=== PATIENT | male | born 1935 | race Caucasian/White ===

== ENCOUNTER → 2017-01-20 | Outpatient (CLI) | payer OTHER ==
[2015-12-03 12:49] VITALS: BP 113/65
--- NOTE | 2017-01-20 10:48 | RAD ---
HISTORY: Cervicalgia Study: Two-view chest Comparison: May 23, 2014 Findings: Trachea is midline. The heart size is normal. There is hyperinflation of the lungs. Increased inters titial markings are again seen in the lungs, more so in the lung bases. Findings favor COPD. No cons olidation, CHF, pleural fluid or pneumothorax is seen. Mild biapical pleural thickening is also seen . Osseous structures are intact. There is multilevel thoracic spondylosis. IMPRESSION: COPD without acute abnormality. Reported By:
--- NOTE | 2017-01-20 16:11 | RAD ---
HISTORY: Cervicalgia Study: Five view cervical spine Comparison: September 09, 2011 Findings: No fracture is seen. There is a very low-grade retrolisthesis of C4 upon C5, likely degenerative. Di sc space narrowing and marginal spondylosis is present at C4-5, C5-6 and C6-7. Bilateral spurs are s een at these levels also. Odontoid view is unremarkable. IMPRESSION: No fracture. Very low-grade retrolisthesis of C4 upon C5, likely degenerative. Multilevel degenerative disc disease and spondylosis with lateral foraminal encroachment bilaterally . Reported By:
== END ==
LOC: RAD 09:05
PROVIDERS: ATTEND Nurse Practitioner Family
DX: M54.2 Cervicalgia (principal); J44.9 Chronic obstructive pulmonary disease, unspecified; M50.321 Other cervical disc degeneration at C4-C5 level; M50.322 Other cervical disc degeneration at C5-C6 level; M50.323 Other cervical disc degeneration at C6-C7 level
CPT/HCPCS: 71020; 72050

== ENCOUNTER → 2017-02-09 | Outpatient (CLI) | payer OTHER ==
[2015-12-03 12:49] VITALS: BP 113/65
--- NOTE | 2017-02-10 08:29 | MRI ---
HISTORY: Cervicalgia, left radiculopathy Study: MRI cervical spine without contrast Comparison: None Technique: Multiplanar multisequence MRI of the cervical spine was obtained utilizing standard depar tmental protocol. Findings: There is mild retrolisthesis of C4 on C5. Alignment of the cervical spine is otherwise maintained. No abnormal signal characteristics of the bone marrow can be identified. No evidence for fracture o r significant bone or edema can be seen. The surrounding soft tissues are unremarkable. C2 -- C3: No evidence for compressive disc disease. The neural foramina are patent. C3 -- C4: Broad-based disk osteophyte formation causes mild thecal sac effacement but no cord compre ssion. It does contribute to foraminal narrowing bilaterally. C4 -- C5: There is disc degeneration with slight retrolisthesis L4 on L5. Broad-based disc osteophyt e complex and retrolisthesis efface the thecal sac contributing to significant canal stenosis and mo derate cord compression. It also contributes to foraminal narrowing bilaterally. C5 -- C6: Disc degeneration is present. Broad-based disc osteophyte formation extends slightly more to the left than the right. It contributes to effacement of the thecal sac and mild canal stenosis b ut no cord compression. It contributes to foraminal narrowing bilaterally. C6 -- C7: Broad-based disk osteophyte formation effaces the thecal sac and contributes to mild canal stenosis but no cord compression. It contributes to significant foraminal narrowing on the right. T he left neural foramen is patent. C7 -- T1: No evidence for compressive disc disease. The neural foramina are patent. IMPRESSION: As above Reported By:
== END | disposition home or self-care (01) ==
LOC: RAD 12:43
PROVIDERS: ATTEND Internal Medicine
DX: R22.2 Localized swelling, mass and lump, trunk (principal); M50.321 Other cervical disc degeneration at C4-C5 level; M50.322 Other cervical disc degeneration at C5-C6 level
CPT/HCPCS: 72141

== ENCOUNTER 2022-01-14 12:09 | Observation (INO) ==
[2022-01-14 13:26] LABS: ABG BASE EXCESS -0.4 mmol/L (-2.0-2.0); ABG HCO3 22.3 mmol/L (22-26)
[2022-01-14 13:31] LABS: BASOPHILS # (AUTO) 0.1 X10^3/uL (0.0-0.1); BASOPHILS % (AUTO) 0.7 % (0.2-1.0); EOSINOPHILS # (AUTO) 0.1 x10^3/uL (0.0-0.2); EOSINOPHILS % (AUTO) 0.6 % (0.9-2.9); ERYTHROCYTE SEDIMENTATION RATE 76 MM/HOUR (0-15); HEMATOCRIT 33.5 % (42.0-54.0); HEMOGLOBIN 11.5 g/dL (13.5-18.0); LYMPHOCYTES # (AUTO) 0.5 X10^3/uL (1.3-2.9); LYMPHOCYTES % (AUTO) 5.7 % (21.0-51.0); MEAN CORPUSCULAR HEMOGLOBIN 29.9 pg (27.0-34.0); MEAN CORPUSCULAR HGB CONC 34.4 g/dL (33.0-35.0); MEAN PLATELET VOLUME 6.5 fL (7.4-11.0); MONOCYTES # (AUTO) 0.7 x10^3/uL (0.3-0.8); MONOCYTES % (AUTO) 7.4 % (0.0-13.0); NEUTROPHILS # (AUTO) 8.3 x10^3/uL (2.2-4.8); NEUTROPHILS % (AUTO) 85.6 % (42.0-75.0); RED BLOOD COUNT 3.85 X10^6/uL (4.7-6.0); WHITE BLOOD COUNT 9.7 X10^3/uL (3.6-10.0)
[2022-01-14 13:41] LABS: LACTIC ACID 1.4 mmol/L (0.4-2.0)
[2022-01-14 13:49] LABS: ALANINE AMINOTRANSFERASE 96 Units/L (12-78); ALBUMIN 2.1 g/dL (3.4-5.0); ALKALINE PHOSPHATASE 174 Units/L (46-116); ASPARTATE AMINO TRANSFERASE 63 Units/L (15-37); BLOOD UREA NITROGEN 27 mg/dL (7-18); CARBON DIOXIDE 24.5 mmol/L (21-32); CHLORIDE 101 mmol/L (98-107); CKMB % 2.1 % (<4); COR CA(FOR HYPOALB) 10.5 mg/dL (8.5-10.1); COR NA(FOR HYPERGLY) 137 mmol/L (136-145); CREATINE KINASE 48 Units/L (39-308); CREATINE KINASE MB < 1.0 ng/mL (0-4.0); CREATININE 1.37 mg/dL (0.70-1.30); SODIUM 136 mmol/L (136-145); TOTAL PROTEIN 7.1 g/dL (6.4-8.2); eGFR NON BLACK RACES 52 (>60)
[2022-01-14] MEDS ORDERED: DUONEB 0.5 MG/3 MG (3 mL) NEB SCH (14:00)
[2022-01-14] MEDS: XOPENEX 1.25 MG/3 ML NEBULE NEB SCH ×2 (14:10→20:49)
[2022-01-14 14:34] LABS: IRON 30 ug/dL (50-175)
[2022-01-14] MEDS: ROCEPHIN VIAL 1 GRAM 1 G in NS 100 ML IV 100 ML IV SCH (15:34)
[2022-01-14] MEDS: NS 1,000 ML IV 1,000 ML IV SCH (15:34)
--- NOTE | 2022-01-14 17:33 | DR.H&P ---
H&P - History & Physical for Day of: H&P Date: 01/14/22 - Chief Complaint Chief Complaint: SOB, WEAKNESS - History of Present Illness History of Present Illness: PT IS 86 WM DIRECT ADMIT FROM DR MELENDEZ OFFICE WITH RESPIRATORY DISTRESS. PT HAD O2 SAT 76% IN TRIAGE. PT SPOUSE REPORTS HE HAS CO INTRACTABLE CHOU FOR SEVERAL DAYS AND WORSENING SOB, POOR APPETITE AND UNSTEADY GAIT. PT HAS PMH OF CAD, MG, COPD, OA AND GERD. PT WAS RECENTLY SEEN BY HIS FUR VAULT ATTENDANT AND REFERRED TO [facility] FOR EVALUATION. PT REPORTS HE HAS NOT FELT GOOD IN SINCE COVID IN OCT 2021. PT TESTED POSITIVE ON 11/06/21. PT ADMITTED FOR TREATMENT OF ACUTE ILLNESS. - Past Medical History Past Medical History: Anxiety, Arthritis, COPD, Coronary Artery Disease Additional Medical History: myasthenia gravis - Past Surgical History Surgical History: Ortho Surgery, Tonsillectomy, Other - Family History Family Medical History: Hypertension - Social History Does patient currently use any type of tobacco product: No Have you used tobacco products in the last 12 months: No Type of Tobacco Use: None Does any household member use tobacco: No Alcohol Use: None Drug Use: None - Medications Home Medications: codeine Allergy (Verified 01/14/22 16:19) - Review of Systems Constitutional: Weakness, Malaise Eyes: No Symptoms Reported ENT: No Symptoms Reported Respiratory: Shortness of Breath, SOB with Excertion Cardiovascular: Palpitations, Light Headedness Gastrointestinal: Nausea, Constipation Genitourinary: No Symptoms Reported Musculoskeletal: Back Pain, Neck Pain Skin: Ecchymosis Neurological: Weakness - Physical Exam Vital Signs: Temperature 97.8 F Pulse Rate 61 Respiratory Rate 23 Blood Pressure 132/63 O2 Sat by Pulse Oximetry 99 Oriented: Normal Eyes: Normal Ear: Normal Nose: Normal Throat: Normal Respiratory: Diminished Throughout Cardiovascular: Tachycardia, Murmur. negative: Edema : Normal Auscultation: Bowel Sounds: Normal Palpation: Normal Tenderness: Normal Skin: Decreased Turgur Musculoskeletal: Back:Lumbar, Motor Deficit Psychiatric: Anxiety Affect: Anxious Speech Pattern: Clear, Appropriate - Assessment/Plan (1) Hypoxia Status: Acute Plan: ADMIT, ICU STEP DOWN. SERIAL EKG AND CE ON ADMISSION. SUPPLEMENTAL O2, ABG ON ROOM AIR. DUO NEBS, IV ATBX, VERIFY HOME MEDICATION. CTA RO PE. LOVENOX THERAPY (2) Elevated d-dimer Status: Acute (3) SOB (shortness of breath) Status: Acute (4) Weakness Status: Acute (5) Myasthenia gravis Status: Acute (6) COPD (chronic obstructive pulmonary disease) Status: Acute - Allergies Allergies/Adverse Reactions: Allergies Allergy/AdvReac Type Severity Reaction Status Date / Time codeine Allergy Verified 01/14/22 16:19
--- NOTE | 2022-01-14 19:24 | CT ---
EXAM: HEAD CT WITHOUT INTRAVENOUS CONTRASTHISTORY: Intractable headache.TECHNIQUE: Spiral axial CT images are obtained through the brain without the administration of intravenous contrast. Additional sagittal and coronal reformatted images are reconstructed.DOSIMETRY: Total DLP 1188.9 mGycm; CTDI 67.4 mGyCOMPARISON: None available.FINDINGS:There are parenchymal lucencies within the white matter tracks of the centrum semiovale, consistent with chronic sequela of atherosclerotic microvascular ischemic disease. Bilateral basal ganglia calcifications consistent with atherosclerotic microangiopathy. Atherosclerosis of the carotid siphons is seen. Consider follow-up MRA as clinically warranted.There is diffuse cerebral cortical atrophy. The centrum semiovale, basal ganglia, cerebellum, and brainstem are otherwise grossly unremarkable for a noncontrast CT scan. There is no acute intracranial hemorrhage, gross acute infarction, mass lesion, midline shift, or hydrocephalus seen. No extra-axial mass or abnormal fluid collection noted.The calvarium is intact. The partially imaged paranasal sinuses, middle ear cavities and mastoid air cells are clear.IMPRESSION:1. Chronic microvascular ischemic disease, but no discernible acute infarction seen. Consider followup MRI with diffusion-weighted imaging to rule out occult acute infarction if clinically warranted.2. Atherosclerosis of the carotid siphons is seen. Consider follow-up MRA as clinically warranted.3. No skull fracture, intracranial hemorrhage, mass lesion, midline shift, or hydrocephalus seen.Electronically signed by: Tonya Cain (Jan 14, 2022 19:24:37)
[2022-01-14 19:29] LABS: CKMB % 2.3 % (<4); CREATINE KINASE 43 Units/L (39-308); CREATINE KINASE MB < 1.0 ng/mL (0-4.0)
--- NOTE | 2022-01-14 19:57 | CT ---
EXAM: CTA CHEST WITH INTRAVENOUS CONTRASTHISTORY: Shortness of breath. Elevated D-dimer. Rule out PE. Prostate cancer.TECHNIQUE: Spiral axial CT images are obtained through the chest with the administration of intravenous contrast. Coronal, sagittal and 3D MIP images are reformatted.DOSIMETRY: Total DLP 478.5 mGycm; CTDI 32.7 mGyCOMPARISON: None available.FINDINGS:CARDIOVASCULAR: There is no evidence for pulmonary embolic disease. There is aortic atherosclerosis; no aortic dissection seen. There is up to 4.2 cm fusiform aneurysmal dilatation of the ascending thoracic aorta. The heart size is within normal limits. No pericardial effusion is seen.MEDIASTINUM AND TANISHA: There is extensive chronic bilateral parenchymal fibrosis, predominantly in the peripheral lung palafox. Mild calcified and noncalcified pleural plaques are seen in the apical regions bilaterally. There is nonspecific shotty mediastinal lymphadenopathy. No mass lesion, emphysema, or abnormal fluid collection is seen.LUNGS: There is no acute parenchymal infiltrate, lung nodule, or endobronchial obstructing lesion seen. No pleural effusion or pneumothorax is evident.CHEST WALL: There are no chest wall lesions seen. The visualized bony structures are within normal limits. No axillary lymphadenopathy is noted.UPPER ABDOMEN: Limited views through the upper abdomen demonstrate no gross acute abnormality.IMPRESSION:1. No evidence for pulmonary embolic disease.2. Aortic atherosclerosis with approximately 4.2 cm ascending thoracic aortic aneurysm; no dissection or rupture.3. Extensive severe chronic subpleural interstitial fibrosis throughout both lungs.4. No acute parenchymal infiltrate, pleural effusion, or pneumothorax seen.Electronically signed by: Tonya Cain (Jan 14, 2022 19:57:31)
[2022-01-14] MEDS: LIPITOR TAB 40 MG PO SCH (21:30)
[2022-01-14] MEDS: MESTINON 60MG TAB PO SCH (21:30)
[2022-01-14] MEDS: EFFEXOR XR 150 MG CAP 24-HR PO SCH (21:30)
[2022-01-14] MEDS: LUMIGAN OPHTH EACHEYE SCH (21:40)
[2022-01-14 22:01] LABS: BILIRUBIN,URINE NEGATIVE (NEGATIVE); BLOOD/HEMOGLOBIN,URINE 1+ (NEGATIVE); GLUCOSE, URINE NEGATIVE (NEGATIVE); KETONES,URINE NEGATIVE (NEGATIVE); LEUKOCYTE ESTERASE ,URINE NEGATIVE (NEGATIVE); NITRITES,URINE NEGATIVE (NEGATIVE); PROTEIN,URINE 1+ (NEGATIVE); UROBILINOGEN,URINE 1+ (NORMAL)
[2022-01-14 22:09] LABS: APPEARANCE,URINE CLEAR (CLEAR); COLOR,URINE YELLOW (YELLOW)
[2022-01-14 22:10] LABS: BACTERIA,URINE NEGATIVE /HPF (NEGATIVE); RBC,URINE 0-2 /HPF (0-3); SQUAMOUS EPITHELIAL CELL,UR RARE /HPF (NEGATIVE)
[2022-01-15 01:17] LABS: CKMB % 2.8 % (<4); CREATINE KINASE 36 Units/L (39-308); CREATINE KINASE MB < 1.0 ng/mL (0-4.0)
[2022-01-15 03:52] LABS: BASOPHILS % (AUTO) 0.3 % (0.2-1.0); EOSINOPHILS # (AUTO) 0.1 x10^3/uL (0.0-0.2); EOSINOPHILS % (AUTO) 0.8 % (0.9-2.9); HEMATOCRIT 30.6 % (42.0-54.0); HEMOGLOBIN 10.4 g/dL (13.5-18.0); LYMPHOCYTES # (AUTO) 0.5 X10^3/uL (1.3-2.9); LYMPHOCYTES % (AUTO) 5.8 % (21.0-51.0); MEAN CORPUSCULAR HEMOGLOBIN 29.7 pg (27.0-34.0); MEAN CORPUSCULAR HGB CONC 34.2 g/dL (33.0-35.0); MEAN PLATELET VOLUME 6.6 fL (7.4-11.0); MONOCYTES # (AUTO) 0.7 x10^3/uL (0.3-0.8); MONOCYTES % (AUTO) 8.3 % (0.0-13.0); NEUTROPHILS # (AUTO) 6.9 x10^3/uL (2.2-4.8); NEUTROPHILS % (AUTO) 84.8 % (42.0-75.0); RED BLOOD COUNT 3.51 X10^6/uL (4.7-6.0); RED CELL DISTRIBUTION WIDTH 14.9 % (11.6-16.5); WHITE BLOOD COUNT 8.1 X10^3/uL (3.6-10.0)
[2022-01-15 03:59] LABS: ALANINE AMINOTRANSFERASE 103 Units/L (12-78); ALBUMIN 1.8 g/dL (3.4-5.0); ALKALINE PHOSPHATASE 170 Units/L (46-116); ASPARTATE AMINO TRANSFERASE 69 Units/L (15-37); BLOOD UREA NITROGEN 22 mg/dL (7-18); CALCIUM 8.8 mg/dL (8.5-10.1); CARBON DIOXIDE 24.5 mmol/L (21-32); CHLORIDE 103 mmol/L (98-107); COR CA(FOR HYPOALB) 10.6 mg/dL (8.5-10.1); COR NA(FOR HYPERGLY) 138 mmol/L (136-145); CREATININE 1.13 mg/dL (0.70-1.30); SODIUM 137 mmol/L (136-145); TOTAL PROTEIN 6.3 g/dL (6.4-8.2); eGFR NON BLACK RACES > 60 (>60)
[2022-01-15] MEDS: XOPENEX 1.25 MG/3 ML NEBULE NEB SCH ×3 (05:57→21:00)
[2022-01-15] MEDS: MESTINON 60MG TAB PO SCH ×3 (06:19→21:00)
[2022-01-15] MEDS: EFFEXOR XR 150 MG CAP 24-HR PO SCH ×2 (09:20→20:21)
[2022-01-15] MEDS: LOVENOX INJ 40 MG SYR SC SCH (09:20)
[2022-01-15] MEDS: PriLOSEC PO SCH (09:21)
[2022-01-15] MEDS: ROCEPHIN VIAL 1 GRAM 1 G in NS 100 ML IV 100 ML IV SCH (09:21)
[2022-01-15 12:15] VITALS: BMI 21.4
[2022-01-15] MEDS ORDERED: APRESOLINE INJ 20 MG VIAL IVP PRN (13:37)
[2022-01-15] MEDS: SOLU-Medrol 40 MG VIAL IVP SCH ×2 (13:53→21:00)
[2022-01-15] MEDS: PROTONIX INJ 40 MG VIAL IVP SCH ×2 (13:53→20:21)
--- NOTE | 2022-01-15 14:26 | VAS ---
HISTORYElevated D-dimer.STUDYLOWER EXT VENOUS, BILATERALCOMPARISONNoneTECHNIQUEThirty-s ix images made by the anesthesia tech. Matias scale and color flow Doppler images of the right and left lower extremity deep venous system were obtained.FINDINGSThere was normal compressibility and flow characteristics from the common femoral vein to the popliteal vein. No evidence of deep venous thrombosis.Proximal profunda femoral vein was patent with no thrombus.Proximal greater saphenous vein was patent with no superficial thrombophlebitis.Posterior tibial veins were patent with no thrombosis.IMPRESSION1. No lower extremity venous thrombosisElectronically signed by: Carlos Vega (Jan 15, 2022 14:26:03)
--- NOTE | 2022-01-15 14:28 | VAS ---
HISTORYElevated D-dimer. Evaluate venous thrombosis.STUDYUPPER EXT VENOUS, BILATCOMPARISONNoneTECHNIQUETwenty-three images made by the cryptological technician. Matias scale and color flow Doppler images of the right and left upper extremity deep venous system were obtained.FINDINGSNormal color flow fills the entire lumen the left and right jugular veins and subclavian veins.There was normal compressibility and flow characteristics from the axillary vein to the brachial vein at the elbow. No evidence of deep venous thrombosis.In the forearm there is normal compressibility and flow characteristics from the brachial vein into the radial veins and ulnar veins.IMPRESSION1. No upper extremity venous thrombosisElectronically signed by: Carlos Vega (Jan 15, 2022 14:28:27)
[2022-01-15] MEDS: NS 1,000 ML IV 1,000 ML IV SCH (17:21)
[2022-01-15] MEDS: LUMIGAN OPHTH EACHEYE SCH (20:20)
[2022-01-15] MEDS: LIPITOR TAB 40 MG PO SCH (20:21)
[2022-01-16 05:12] LABS: BASOPHILS % (AUTO) 0.4 % (0.2-1.0); HEMATOCRIT 29.7 % (42.0-54.0); HEMOGLOBIN 10.4 g/dL (13.5-18.0); LYMPHOCYTES # (AUTO) 0.2 X10^3/uL (1.3-2.9); LYMPHOCYTES % (AUTO) 3.6 % (21.0-51.0); MEAN CORPUSCULAR HEMOGLOBIN 30.4 pg (27.0-34.0); MEAN CORPUSCULAR VOLUME 86.9 fL (80.0-100.0); MEAN PLATELET VOLUME 6.4 fL (7.4-11.0); MONOCYTES # (AUTO) 0.1 x10^3/uL (0.3-0.8); MONOCYTES % (AUTO) 1.4 % (0.0-13.0); NEUTROPHILS # (AUTO) 6.4 x10^3/uL (2.2-4.8); NEUTROPHILS % (AUTO) 94.6 % (42.0-75.0); RED BLOOD COUNT 3.42 X10^6/uL (4.7-6.0); RED CELL DISTRIBUTION WIDTH 14.9 % (11.6-16.5); WHITE BLOOD COUNT 6.7 X10^3/uL (3.6-10.0)
[2022-01-16 05:26] LABS: ALANINE AMINOTRANSFERASE 160 Units/L (12-78); ALBUMIN 1.8 g/dL (3.4-5.0); ALKALINE PHOSPHATASE 184 Units/L (46-116); ASPARTATE AMINO TRANSFERASE 105 Units/L (15-37); BLOOD UREA NITROGEN 22 mg/dL (7-18); CALCIUM 8.6 mg/dL (8.5-10.1); CARBON DIOXIDE 24.2 mmol/L (21-32); CHLORIDE 104 mmol/L (98-107); COR CA(FOR HYPOALB) 10.4 mg/dL (8.5-10.1); COR NA(FOR HYPERGLY) 140 mmol/L (136-145); CREATININE 1.23 mg/dL (0.70-1.30); SODIUM 137 mmol/L (136-145); TOTAL PROTEIN 6.2 g/dL (6.4-8.2); eGFR NON BLACK RACES 59 (>60)
[2022-01-16 05:51] LABS: PLATELET MORPHOLOGY COMMENT NORMAL (NORMAL)
[2022-01-16] MEDS: XOPENEX 1.25 MG/3 ML NEBULE NEB SCH ×2 (06:27→13:15)
[2022-01-16] MEDS: MESTINON 60MG TAB PO SCH ×2 (06:29→13:42)
[2022-01-16] MEDS: SOLU-Medrol 40 MG VIAL IVP SCH (06:29)
[2022-01-16] MEDS: LOVENOX INJ 40 MG SYR SC SCH (08:54)
[2022-01-16] MEDS: ROCEPHIN VIAL 1 GRAM 1 G in NS 100 ML IV 100 ML IV SCH (08:54)
[2022-01-16] MEDS: PriLOSEC PO SCH (08:55)
[2022-01-16] MEDS: EFFEXOR XR 150 MG CAP 24-HR PO SCH (08:55)
[2022-01-16] MEDS: PROTONIX INJ 40 MG VIAL IVP SCH (08:55)
--- NOTE | 2022-01-16 08:55 | RAD ---
HISTORYConstipationSTUDYAbdomen series with AP chestCOMPARISONCT abdomen 08/08/2019, CTA chest January 14, 2022FINDINGSAP chest: Heart size normal. Bilateral interstitial and airspace disease consistent with fibrosis described on recent chest CT. No pleural fluid or pneumoperitoneum.Abdomen: Supine and erect views demonstrate slight dilatation of scattered segments of bowel. There is no evidence for obstruction or perforation. No organ enlargement, ascites or mass formation noted. Contrast material is noted in the urinary bladder. Radiation seed sources are noted in the prostate.IMPRESSIONNo acute chest disease noted. See above description.Nonspecific abdomen series without evidence for obstruction, focal ileus or perforation.Electronically signed by: SHEILA ACE (Jan 16, 2022 08:55:29)
[2022-01-16 13:36] VITALS: BP 142/70
--- NOTE | 2022-03-11 12:10 | PCM.DCPLAN ---
Discharge Plan - Discharge Plan Hospital Course: Admit date 01/14/22 Discharge date 01/16/22 DOS 01/16/22 Admit Diagnosis(1) Hypoxia (2) Elevated d-dimer (3) SOB (shortness of breath) (4) Weakness (5) Myasthenia gravis (6) COPD (chronic obstructive pulmonary disease) Discharge Diagnosis 1. Acute bronchitis with pulmonary fibrosis. 2. Abnormal D-Dimer. 3. Myasthenia gravis. 4. Lower abdominal pain with history of constipation. 5. History of multijoint osteoarthritis. Hospital Course Mr. Pearce is an 86-year-old white male admitted from our office yesterday with respiratory distress. The patient does have a history of chronic obstructive pulmonary disease. He had COVID-19 at the end of October and reports since COVID-19 he has gradually gotten weaker. He has had multiple falls with worsening shortness of breath. The patients PO2 on room air on admission was 63. He had an elevated D-Dimer and we ordered a CTA of his chest, which showed bilateral diffuse pulmonary fibrosis without pulmonary embolism. The patient was slightly dehydrated with a creatinine of 1.37. He has received IV fluids at KVO and his creatinine was down to 1.3 today. Serial cardiac enzymes were stable. He did have an occult stool ordered, as well as an anemia panel and lactic acid. The patients iron was at 30, so we will order some iron replacement therapy. Lactic acid was normal at 1.4. The patients LDH was obtained and it was elevated. The patients CRP was at 461. He had been complaining of a headache, so we also obtained a CT of the brain just showing some chronic microvascular changes. No signs of any acute hemorrhage or CVA. After being placed on supplemental oxygen, the patient reported headache improved. He was having persistent cough. The patient stated that he had minimal production this morning. He is tolerating breathing treatments okay. We did order upper and lower extremity venous Dopplers also because of his elevated D-dimer and those were negative for peripheral deep vein thrombosis. He is on Lovenox anticoagulant therapy for deep vein thrombosis prevention. We also started him on a low-dose of corticosteroids to help with his upper respiratory symptoms. He denies chest pain this morning. The patient states that he did rest pretty well the first part of the night and we resumed his home medication for myasthenia gravis, as well as depression. Patient was treated with duo nebs, steroids, and antibiotics, and oxygen. Patient symptoms improved and patient was discharged home with follow up in office. Imaging revealed no acute findings. LAbs were unremarkable. Symptoms improved, cultures negative. Greater than 35 mins spent on discharge. Disposition: 01 HOME, SELF-CARE Condition: Stable Health Concerns: Post Hospitalization: new medications and changes needed to prevent readmission or further decline. Pt educated and given instructions on all concerns. Care Plan Goals: Problem: Respiratory Complications Goal: Improved Uncomplicated Respiratory Status Instructions: Follow provided instructions. Follow up with primary physician as directed. Contact primary care physician or report to the closest Emergency Room if condition worsens. Plan of Treatment: Continue with present treatment and follow up plan. Pt is to keep follow up appointment as instructed and take medications as ordered. Prescriptions: Continued acebutolol 200 mg capsule 200 mg PO DAILY atorvastatin 40 MG tablet 1 tab PO HS Lumigan 0.01 % drops 1 drp PO HS omeprazole 20 MG capsule,delayed release(DR/EC) 20 mg PO BID pyridostigmine bromide 60 mg tablet 120 mg PO TID Simbrinza 1-0.2 % drops,suspension 3 drp ophthalmic (eye) TID tolterodine 4 mg capsule,extended release 24hr 4 mg PO DAILY venlafaxine 150 MG capsule,extended release 24hr 1 cap PO DAILY - Orders to Discharge Patient Discharge Orders: Discharge (Routine); Ordered 01/16/22 Ordered By: Kaylee Lee - Instructions Instructions: Fall Prevention in the Home, Adult, [id number], Home Oxygen Use, Adult, Hypoxia, Chronic Obstructive Pulmonary Disease Exacerbation, [id number], Rehydration, Elderly, Dehydration, Elderly, [id number], Myasthenia Gravis Forms: Precautions for [place] [id number], [facility], Patient Portal, Social Distancing Print Language: YI
== END 2022-01-16 16:11 | disposition home or self-care (01) ==
LOC: ICU
PROVIDERS: ADMIT Internal Medicine; ATTEND Internal Medicine
DX: J20.8 Acute bronchitis due to other specified organisms; I71.2 Thoracic aortic aneurysm, without rupture; K59.09 Other constipation; G70.00 Myasthenia gravis without (acute) exacerbation; R06.02 Shortness of breath; J84.10 Pulmonary fibrosis, unspecified; E86.0 Dehydration; R51.9 Headache, unspecified; R06.03 Acute respiratory distress; J44.9 Chronic obstructive pulmonary disease, unspecified; Z86.16 Personal history of COVID-19; R53.1 Weakness; R79.82 Elevated C-reactive protein (CRP); R79.1 Abnormal coagulation profile; R94.31 Abnormal electrocardiogram [ECG] [EKG]; R26.81 Unsteadiness on feet

== ENCOUNTER 2023-08-06 15:10 | Observation (INO) ==
[2023-08-06] MEDS ORDERED: ZOFRAN INJ 4 MG VIAL IVP PRN (17:42)
[2023-08-06 17:52] LABS: ABG BASE EXCESS 2.4 mmol/L (-2.0-2.0); ABG HCO3 27.2 mmol/L (22-26)
[2023-08-06 18:03] LABS: HEMATOCRIT 38.8 % (42.0-54.0)
[2023-08-06 18:08] LABS: BASOPHILS % (AUTO) 0.4 % (0.2-1.0); EOSINOPHILS # (AUTO) 0.1 x10^3/uL (0.0-0.2); EOSINOPHILS % (AUTO) 1.1 % (0.9-2.9); LYMPHOCYTES % (AUTO) 12.9 % (21.0-51.0); MEAN CORPUSCULAR HEMOGLOBIN 29.3 pg (27.0-34.0); MEAN CORPUSCULAR HGB CONC 33.5 g/dL (33.0-35.0); MEAN CORPUSCULAR VOLUME 87.5 fL (80.0-100.0); MEAN PLATELET VOLUME 6.5 fL (7.4-11.0); MONOCYTES # (AUTO) 0.7 x10^3/uL (0.3-0.8); MONOCYTES % (AUTO) 8.3 % (0.0-13.0); NEUTROPHILS # (AUTO) 6.1 x10^3/uL (2.2-4.8); NEUTROPHILS % (AUTO) 77.3 % (42.0-75.0); PLATELET COUNT 181 X10^3/uL (150.0-450.0); RED BLOOD COUNT 4.43 X10^6/uL (4.7-6.0); RED CELL DISTRIBUTION WIDTH 14.4 % (11.6-16.5); WHITE BLOOD COUNT 7.9 X10^3/uL (3.6-10.0)
[2023-08-06 18:11] LABS: INR 1.05 (0.8-1.3)
[2023-08-06 18:20] LABS: ALANINE AMINOTRANSFERASE 26 Units/L (12-78); ALBUMIN 3.1 g/dL (3.4-5.0); ALKALINE PHOSPHATASE 128 Units/L (46-116); ASPARTATE AMINO TRANSFERASE 19 Units/L (15-37); BLOOD UREA NITROGEN 29 mg/dL (7-18); CALCIUM 8.9 mg/dL (8.5-10.1); CARBON DIOXIDE 31.3 mmol/L (21-32); CHLORIDE 104 mmol/L (98-107); COR CA(FOR HYPOALB) 9.6 mg/dL (8.5-10.1); CREATININE 1.32 mg/dL (0.70-1.30); GLUCOSE 100 mg/dL (65-99); POTASSIUM 4.4 mmol/L (3.5-5.1); SODIUM 141 mmol/L (136-145); TOTAL PROTEIN 6.6 g/dL (6.4-8.2); eGFR NON BLACK RACES 54 (>60)
[2023-08-06 18:33] VITALS: BMI 20.8
[2023-08-06] MEDS: ROCEPHIN VIAL 1 GRAM 1 G in NS 100 ML IV 100 ML IV SCH (19:30)
[2023-08-06] MEDS: NS 1,000 ML IV 1,000 ML IV SCH (19:30)
[2023-08-06 20:31] LABS: BILIRUBIN,URINE NEGATIVE (NEGATIVE); BLOOD/HEMOGLOBIN,URINE NEGATIVE (NEGATIVE); GLUCOSE, URINE NEGATIVE (NEGATIVE); KETONES,URINE NEGATIVE (NEGATIVE); LEUKOCYTE ESTERASE ,URINE NEGATIVE (NEGATIVE); NITRITES,URINE NEGATIVE (NEGATIVE); PROTEIN,URINE NEGATIVE (NEGATIVE); UROBILINOGEN,URINE NORMAL (NORMAL)
[2023-08-06] MEDS: PROTONIX INJ 40 MG VIAL IVP SCH (20:33)
[2023-08-06] MEDS: TYLENOL 325 MG TAB PO PRN (20:34)
[2023-08-06 20:36] LABS: APPEARANCE,URINE CLEAR (CLEAR); COLOR,URINE YELLOW (YELLOW)
--- NOTE | 2023-08-07 04:24 | RAD ---
HISTORYSOB, EMPHYSEMA, PRODUCTIVE COUGH Relevant Clinical InformationSTUDYCHEST, 1 VIEWCOMPARISONNoneFINDINGSThe trachea is midline. The cardiac silhouette is unremarkable. The lungs are clear without focal infiltrate or effusion. The bony thorax is unremarkable.IMPRESSIONNo acute cardiopulmonary findings .Electronically signed by: Yonathan Small (Aug 07, 2023 04:23:15)
[2023-08-07 05:35] LABS: BASOPHILS % (AUTO) 0.2 % (0.2-1.0); EOSINOPHILS # (AUTO) 0.1 x10^3/uL (0.0-0.2); EOSINOPHILS % (AUTO) 1.6 % (0.9-2.9); HEMATOCRIT 35.3 % (42.0-54.0); HEMOGLOBIN 12.1 g/dL (13.5-18.0); LYMPHOCYTES # (AUTO) 1.4 X10^3/uL (1.3-2.9); LYMPHOCYTES % (AUTO) 20.6 % (21.0-51.0); MEAN CORPUSCULAR HEMOGLOBIN 29.6 pg (27.0-34.0); MEAN CORPUSCULAR HGB CONC 34.2 g/dL (33.0-35.0); MEAN CORPUSCULAR VOLUME 86.5 fL (80.0-100.0); MEAN PLATELET VOLUME 6.8 fL (7.4-11.0); MONOCYTES # (AUTO) 0.6 x10^3/uL (0.3-0.8); MONOCYTES % (AUTO) 8.5 % (0.0-13.0); NEUTROPHILS # (AUTO) 4.6 x10^3/uL (2.2-4.8); NEUTROPHILS % (AUTO) 69.1 % (42.0-75.0); PLATELET COUNT 181 X10^3/uL (150.0-450.0); RED BLOOD COUNT 4.09 X10^6/uL (4.7-6.0); RED CELL DISTRIBUTION WIDTH 14.2 % (11.6-16.5); WHITE BLOOD COUNT 6.6 X10^3/uL (3.6-10.0)
[2023-08-07 05:58] LABS: ALANINE AMINOTRANSFERASE 20 Units/L (12-78); ALBUMIN 2.8 g/dL (3.4-5.0); ALKALINE PHOSPHATASE 114 Units/L (46-116); ASPARTATE AMINO TRANSFERASE 19 Units/L (15-37); BLOOD UREA NITROGEN 26 mg/dL (7-18); CALCIUM 8.4 mg/dL (8.5-10.1); CARBON DIOXIDE 27.7 mmol/L (21-32); CHLORIDE 106 mmol/L (98-107); COR CA(FOR HYPOALB) 9.4 mg/dL (8.5-10.1); CREATININE 1.17 mg/dL (0.70-1.30); GLUCOSE 102 mg/dL (65-99); POTASSIUM 4.1 mmol/L (3.5-5.1); SODIUM 141 mmol/L (136-145); eGFR NON BLACK RACES > 60 (>60)
[2023-08-07] MEDS ORDERED: LYRICA CAP 50 mg PO PRN (08:06)
--- NOTE | 2023-08-07 08:22 | DR.H&P ---
H&P - History & Physical for Day of: H&P Date: 08/06/23 - Chief Complaint Chief Complaint: severe lower back and leg pain, n/v, sob - History of Present Illness History of Present Illness: PT IS 88 WM, DIRECT ADMIT FROM DR. MELENDEZ OFFICE WITH POSSIBLE ACUTE, ISCHEMIC LIMB DISEASE, SOB WITH HX OF PULMONARY FIBROSIS, AND INTRACTABLE LOWER BACK PAIN. PT REPORTS LOWER BACK PAIN SEVERE WITH LEFT FOOT AND LEG PAIN WITH MARKED DISCOLORATION AND COOL TO TOUCH. PT REPORTS ONSET ABOUT ONE WEEK AND WORSE. PT HAS DIFFUSE WEAKNESS AND ACTIVE VOMITING IN OFFICE [employer]. PT HAS PMH OF CAD, HX WATCHMAN PROCEDURE, MG, PULMONARY FIBROSIS, OA AND NEUROPATHY. PT ADMITTED TO ICU FOR TREATMENT OF ACUTE ILLNESS. - Past Medical History Past Medical History: Coronary Artery Disease, COPD, GERD Additional Medical History: myasthenia gravis - Past Surgical History Surgical History: Angioplasty/Stents, Ortho Surgery, Tonsillectomy, Other Additional Surgical History: WATCHMAN PROCEDURE - Family History Family Medical History: Hypertension - Social History Does patient currently use any type of tobacco product: No Have you used tobacco products in the last 12 months: No Type of Tobacco Use: None Does any household member use tobacco: No Alcohol Use: None Drug Use: None - Review of Systems Constitutional: Weakness, Malaise Eyes: No Symptoms Reported ENT: Nose Congestion Respiratory: Cough, Shortness of Breath, SOB with Excertion, Sputum, Wheezing Cardiovascular: Palpitations Gastrointestinal: Nausea, Vomiting Genitourinary: Other (DARK URINE, DECREASED OUTPUT ) Musculoskeletal: Back Pain, Leg Pain Skin: Other ( DARK RED, PURPLE DISCOLORATION) - Physical Exam Vital Signs: Vital Signs Temperature 97.8 F Pulse Rate 61 Pulse Rate 63 Pulse Rate 67 Pulse Rate 61 Pulse Rate 62 Pulse Rate 60 Respiratory Rate 19 Respiratory Rate 18 Respiratory Rate 26 Respiratory Rate 18 Respiratory Rate 18 Respiratory Rate 21 Blood Pressure 121/64 Blood Pressure 125/67 Blood Pressure 127/67 Blood Pressure 125/63 Blood Pressure 124/62 Blood Pressure 121/57 O2 Sat by Pulse Oximetry 94 O2 Sat by Pulse Oximetry 96 O2 Sat by Pulse Oximetry 96 O2 Sat by Pulse Oximetry 96 O2 Sat by Pulse Oximetry 96 O2 Sat by Pulse Oximetry 96 Oriented: Normal Eyes: Normal Ear: Normal Nose: Normal Throat: Normal Respiratory: Rhonchi Throughout, Wheezes Throughout, RLL Diminished, LLL Diminished Cardiovascular: Tachycardia : Normal Auscultation: Bowel Sounds: Normal Palpation: Normal Tenderness: Normal Skin: Decreased Turgur, Other (LEFT HAND CYANOSIS, DARK RED/PURPLE DISCOLORATION TO BILATERAL FEET UP TO LOWER LEG ON LEFT SIDE, UP TO ANKLE ON RIGHT) Musculoskeletal: Back:Lumbar, Motor Deficit, Sensory Deficit, Instability Psychiatric: Anxiety Affect: Anxious Speech Pattern: Clear, Appropriate - Assessment/Plan (1) SOB (shortness of breath) Status: Acute Plan: ADMIT, ICU. SUPPLEMENTAL O2, CONTINUE HOME MEDICINE INCLUDING PLAVIX AND STATIN. CTA AORTA WITH RUNOFF RO ACUTE ARTERIAL STENOSIS. CE AND EKG, CXR ON ADMISSION. GENTLE IV HYDRATION WITH PAIN CONTROL, VERIFY HOME MEDICATIONS. RESP CONSULT, ABG ON ADMISSION. SPUTUM AND URINE CULTURE (2) COPD (chronic obstructive pulmonary disease) Qualifiers: COPD type: COPD with acute exacerbation Qualified Code(s): J44.1 - Chronic obstructive pulmonary disease with (acute) exacerbation Status: Acute (3) Intermittent claudication Status: Acute (4) Hypoxemia Status: Acute (5) UTI (urinary tract infection) Status: Acute (6) Myasthenia gravis Status: Acute - Allergies Allergies/Adverse Reactions: Allergies Allergy/AdvReac Type Severity Reaction Status Date / Time codeine Allergy Verified 08/06/23 17:48 - Medications Home Medications: Home Medications Medication Instructions Recorded Confirmed atorvastatin 40 mg tablet 1 tab PO HS 02/13/14 08/06/23 omeprazole 20 mg capsule,delayed 20 mg PO BID 02/13/14 08/06/23 release venlafaxine 150 mg 1 cap PO DAILY 02/13/14 08/06/23 capsule,extended release 24 hr acebutolol 200 mg capsule 200 mg PO DAILY 01/15/22 08/06/23 pyridostigmine bromide 60 mg tablet 120 mg PO TID 01/15/22 08/06/23 aspirin 81 mg capsule,delayed 81 mg PO DAILY 08/06/23 08/06/23 release furosemide 20 mg tablet 20 mg PO QDAY 08/06/23 08/06/23 mezxgfjpwbwv-bzwxmypi-[id number] 1 tab PO DAILY 08/06/23 08/06/23 tablet (Multivitamin 50 Plus tablet) pirfenidone 801 mg tablet 801 mg PO QID 08/06/23 08/06/23 potassium chloride 10 mEq 10 meq PO QDAY 08/06/23 08/06/23 tablet,extended release
--- NOTE | 2023-08-07 08:26 | PCM.PROG ---
Progress Note - Progress Note for Day of Date of Exam: 08/07/23 - Subjective Subjective: PT IS 88 WM, DIRECT ADMIT WITH SOB, COPD EXACERATION AND CLAUDICATION AND LIMB CYANOSIS SUGGESTION ISCHEMIC LIMB DISEASE. PT IS CURRENTLY ON PLAVIX AND STATIN THERAPY. CTA OF [place] ORDERED WITH RESULTS PENDING. CE AND EKG OBTAINED ON ADMISSION. PT HAS IMPROVED LIMB PAIN THIS MORNING WITH SOME IMPROVEMENT IN SEVERITY OF LLE DISCOLORATION. PT CONTINUES TO CO LOWER BACK PAIN AND NEUROPATHIC PAIN. CULTURES OBTAINED ON ADMISSION. PLAN TO ADD SOLU MEDROL FOR COPD AB AND CONTINUE WITH PAIN CONTROL AND RESP THERAPY. WILL DISCUSS ANTICOAGULANT THERAPY AFTER CTA RESULTS SINCE PT HAS HX OF ANEMIA AND IS ON ASPIRIN AND PLAVIX THERAPY. - Past Medical Family Social History Past Med/Fam/Surg Hx: No changes since H&P Allergies: Allergies codeine Allergy (Verified 08/06/23 17:48) - Review of Systems ROS: No change since H&P - Vital Signs and I&O's Vital Signs: Vital Signs Temperature 97.8 F Pulse Rate 61 Pulse Rate 63 Pulse Rate 67 Pulse Rate 61 Pulse Rate 62 Pulse Rate 60 Respiratory Rate 19 Respiratory Rate 18 Respiratory Rate 26 Respiratory Rate 18 Respiratory Rate 18 Respiratory Rate 21 Blood Pressure 121/64 Blood Pressure 125/67 Blood Pressure 127/67 Blood Pressure 125/63 Blood Pressure 124/62 Blood Pressure 121/57 O2 Sat by Pulse Oximetry 94 O2 Sat by Pulse Oximetry 96 O2 Sat by Pulse Oximetry 96 O2 Sat by Pulse Oximetry 96 O2 Sat by Pulse Oximetry 96 O2 Sat by Pulse Oximetry 96 Intake and Output: Intake & Output 08/04/23 08/05/23 08/06/23 08/07/23 11:59 11:59 11:59 11:59 Intake Total 734 / 734 Output Total 400 / 400 Balance 334 / 334 - Physical Exam Oriented: Normal Eyes: Normal Ear: Normal Nose: Normal Throat: Normal Respiratory: Diminished, Rhonchi Cardiovascular: Tachycardia : Normal Auscultation: Bowel Sounds: Normal Tenderness: Normal Skin: Decreased Turgur, Other (LEFT HAND CYANOSIS, DARK RED/PURPLE DISCOLORATION TO BILATERAL FEET UP TO LOWER LEG ON LEFT SIDE, UP TO ANKLE ON RIGHT) Musculoskeletal: Back:Lumbar, Motor Deficit, Sensory Deficit, Instability Psychiatric: Anxiety Affect: Anxious Speech Pattern: Clear, Appropriate - Laboratory and Diagnostics Result Diagrams: 08/07/23 04:40 08/07/23 04:40 Labs: 08/06/23 20:22 Urine,Clean Catch Urine Culture - Preliminary 08/06/23 18:03 Sputum - Expectorated Sputum Sputum Culture - Preliminary 08/06/23 18:03 Sputum - Expectorated Sputum - Final Laboratory WBC 6.6 X10^3/uL (3.6-10.0) 08/07/23 04:40 RBC 4.09 X10^6/uL (4.7-6.0) L 08/07/23 04:40 Hgb 12.1 g/dL (13.5-18.0) L 08/07/23 04:40 Hct 35.3 % (42.0-54.0) L 08/07/23 04:40 MCV 86.5 fL (80.0-100.0) 08/07/23 04:40 MCH 29.6 pg (27.0-34.0) 08/07/23 04:40 MCHC 34.2 g/dL (33.0-35.0) 08/07/23 04:40 RDW 14.2 % (11.6-16.5) 08/07/23 04:40 Plt Count 181 X10^3/uL (150.0-450.0) 08/07/23 04:40 MPV 6.8 fL (7.4-11.0) L 08/07/23 04:40 Neut % (Auto) 69.1 % (42.0-75.0) 08/07/23 04:40 Lymph % (Auto) 20.6 % (21.0-51.0) L 08/07/23 04:40 [place] % (Auto) 8.5 % (0.0-13.0) 08/07/23 04:40 Eos % (Auto) 1.6 % (0.9-2.9) 08/07/23 04:40 Baso % (Auto) 0.2 % (0.2-1.0) 08/07/23 04:40 Neut # (Auto) 4.6 x10^3/uL (2.2-4.8) 08/07/23 04:40 Lymph # (Auto) 1.4 X10^3/uL (1.3-2.9) 08/07/23 04:40 [place] # (Auto) 0.6 x10^3/uL (0.3-0.8) 08/07/23 04:40 Eos # (Auto) 0.1 x10^3/uL (0.0-0.2) 08/07/23 04:40 Baso # (Auto) 0.0 X10^3/uL (0.0-0.1) 08/07/23 04:40 Absolute Nucleated RBC 0.0 /100WBC 08/07/23 04:40 PT 13.5 SECONDS (11.8-14.3) 08/06/23 17:50 INR Target Range - 08/06/23 17:50 INR 1.05 (0.8-1.3) 08/06/23 17:50 APTT 27.9 SECONDS (22.9-36.5) 08/06/23 17:50 PTT Comment - 08/06/23 17:50 D-Dimer 0.61 ug/ml (0.0-0.57) H 08/06/23 17:50 Sample Site Lbra 08/06/23 17:48 ABG pH 7.420 (7.35-7.45) 08/06/23 17:48 ABG pCO2 42.0 mmHg (35.0-45.0) 08/06/23 17:48 ABG pO2 144.0 mmHg (80.0-100.0) H 08/06/23 17:48 ABG HCO3 27.2 mmol/L (22-26) H 08/06/23 17:48 ABG O2 Saturation 99.0 % (90-100) 08/06/23 17:48 ABG Base Excess 2.4 mmol/L (-2.0-2.0) H 08/06/23 17:48 Jose Test N/a 08/06/23 17:48 A-a Gradient 60.0 mmHg 08/06/23 17:48 FiO2 36.0 08/06/23 17:48 Blood Gas Comments Pt justyn well elj 08/06/23 17:48 Sodium 141 mmol/L (136-145) 08/07/23 04:40 Corrected Sodium TNP 08/07/23 04:40 Potassium 4.1 mmol/L (3.5-5.1) 08/07/23 04:40 Chloride 106 mmol/L (98-107) 08/07/23 04:40 Carbon Dioxide 27.7 mmol/L (21-32) 08/07/23 04:40 BUN 26 mg/dL (7-18) H 08/07/23 04:40 Creatinine 1.17 mg/dL (0.70-1.30) 08/07/23 04:40 Est GFR (MDRD) Af Amer > 60 (>60) 08/07/23 04:40 Est GFR (MDRD) Non-Af > 60 (>60) 08/07/23 04:40 Glucose 102 mg/dL (65-99) H 08/07/23 04:40 Calcium 8.4 mg/dL (8.5-10.1) L 08/07/23 04:40 Corrected Calcium 9.4 mg/dL (8.5-10.1) 08/07/23 04:40 Total Bilirubin 0.30 mg/dL (0.2-1.0) 08/07/23 04:40 AST 19 Units/L (15-37) 08/07/23 04:40 ALT 20 Units/L (12-78) 08/07/23 04:40 Alkaline Phosphatase 114 Units/L (46-116) 08/07/23 04:40 Creatine Kinase 60 Units/L (39-308) 08/06/23 17:50 Troponin I High Sens 10.9 ng/L (4.0-60.0) 08/06/23 17:50 Total Protein 6.0 g/dL (6.4-8.2) L 08/07/23 04:40 Albumin 2.8 g/dL (3.4-5.0) L 08/07/23 04:40 Globulin 3.2 g/dL (2.5-4.5) 08/07/23 04:40 Albumin/Globulin Ratio 0.9 Ratio (1.1-2.1) L 08/07/23 04:40 Specimen Type Random urine 08/06/23 20: Urine Color Yellow (YELLOW) 08/06/23 20:22 Urine Appearance Clear (CLEAR) 08/06/23 20:22 Urine pH 5.0 (5.0 - 8.0) 08/06/23 20:22 Ur Specific [place] 1.025 (1.000-1.030) 08/06/23 20:22 Urine Protein Negative (NEGATIVE) 08/06/23 20:22 Urine Glucose (UA) Negative (NEGATIVE) 08/06/23 20:22 Urine Ketones Negative (NEGATIVE) 08/06/23 20:22 Urine Blood Negative (NEGATIVE) 08/06/23 20:22 Urine Nitrite Negative (NEGATIVE) 08/06/23 20:22 Urine Bilirubin Negative (NEGATIVE) 08/06/23 20:22 Urine Urobilinogen Normal (NORMAL) 08/06/23 20:22 Ur Leukocyte Esterase Negative (NEGATIVE) 08/06/23 20:22 - Plan (1) SOB (shortness of breath) Status: Acute Plan: ICU. SUPPLEMENTAL O2, CONTINUE HOME MEDICINE INCLUDING PLAVIX AND STATIN. CTA AORTA WITH RUNOFF RO ACUTE ARTERIAL STENOSIS. CE AND EKG, CXR ON ADMISSION. GENTLE IV HYDRATION WITH PAIN CONTROL, VERIFY HOME MEDICATIONS. RESP CONSULT, ABG ON ADMISSION. SPUTUM AND URINE CULTURE (2) COPD (chronic obstructive pulmonary disease) Status: Acute Qualifiers: COPD type: COPD with acute exacerbation Qualified Code(s): J44.1 - Chronic obstructive pulmonary disease with (acute) exacerbation (3) Intermittent claudication Status: Acute (4) Hypoxemia Status: Acute (5) UTI (urinary tract infection) Status: Acute (6) Myasthenia gravis Status: Acute
[2023-08-07] MEDS ORDERED: OMNIPAQUE 350 mg/mL 100 mL BTL 100 ML ONE (08:57)
[2023-08-07] MEDS ORDERED: OMNIPAQUE 350 mg/mL 50 mL BTL 50 ML ONE (08:57)
[2023-08-07] MEDS: ROCEPHIN VIAL 1 GRAM 1 G in NS 100 ML IV 100 ML IV SCH (09:15)
[2023-08-07] MEDS: PROTONIX INJ 40 MG VIAL IVP SCH ×2 (09:15→20:18)
[2023-08-07] MEDS: SOLU-Medrol 40 MG VIAL IVP SCH ×3 (09:15→21:14)
[2023-08-07] MEDS ORDERED: ASTELIN NASAL SPRAY ENOSTRIL ONE (10:14)
[2023-08-07] MEDS: LOVENOX INJ 40 MG SYR SC SCH (10:23)
[2023-08-07] MEDS: TAB-A-VITE PO SCH ×2 (10:23→11:21)
[2023-08-07] MEDS: ASTELIN NASAL SPRAY ENOSTRIL SCH ×2 (10:23→20:18)
[2023-08-07] MEDS: ACEBUTOLOL 200 MG PO SCH ×2 (10:24→11:26)
[2023-08-07] MEDS: EFFEXOR XR 150 MG CAP 24-HR PO SCH ×2 (10:24→11:21)
[2023-08-07] MEDS: MICRO K EXTEN CAP 10 MEQ PO SCH ×2 (10:25→11:21)
[2023-08-07] MEDS: PIRFENIDONE 801 MG PO SCH ×5 (10:25→21:15)
[2023-08-07] MEDS: ASPIRIN EC 81 MG PO SCH ×2 (10:25→11:21)
[2023-08-07] MEDS: LASIX PO SCH ×2 (10:25→11:21)
[2023-08-07] MEDS: MESTINON 60MG TAB PO SCH ×2 (13:58→21:14)
[2023-08-07] MEDS: TYLENOL 325 MG TAB PO PRN (17:23)
[2023-08-07] MEDS: NS 1,000 ML IV 1,000 ML IV SCH ×2 (20:19→22:40)
[2023-08-07] MEDS ORDERED: LIPITOR TAB 40 MG PO SCH (21:00)
--- NOTE | 2023-08-07 22:15 | CT ---
PROCEDURE: CTA Abdomen and Pelvis with Bilateral Iliofemoral Runoff .HISTORY: Hypoxia and acrocyanosis.TECHNIQUE: Axial images were performed through the abdomen and pelvis with bilateral lower extremity runoff before and during the administration of IV contrast with multiplanar reformations . 3D and MIPS reconstructions were performed and reviewed. Oral contrast was not administered . Dose reduction techniques including Automated Exposure Control (AEC) and adjustment of mA and kV were utilized .COMPARISON: None .TECHNICAL QUALITY:Satisfactory .FINDINGS:Emphysematous changes both lung bases with linear scar versus discoid atelectasis and dependent atelectasis.Liver, spleen, adrenals, and pancreas show no significant abnormality.Kidneys show no masses or obstruction.Normal biliary tract.No ascites or pneumoperitoneum.No lymphadenopathy.Moderate colonic diverticulosis. No bowel inflammation or obstruction. Normal appendix.Pelvis shows no masses or free fluid. Mild thickening of the posterior urinary bladder wall versus contrast in the bladder.No acute bony abnormality.PzelwqbrGrvn-wh-rpndrhcc atherosclerosis abdominal aorta with no aneurysm or dissection. Atherosclerosis major branches of the aorta proximally with no significant narrowing or occlusion.Iliofemoral runoff through the pelvis shows scattered mild atherosclerosis.Scattered mild atherosclerosis right lower extremity femoral arteries without narrowing. Mild atherosclerosis right popliteal artery. Trifurcation vessels on the right show scattered mild atherosclerosis with three-vessel runoff at the ankle.Left lower extremity shows minimal atherosclerosis left femoral arteries without significant narrowing. Left popliteal artery is unremarkable. Scattered mild atherosclerotic calcifications trifurcation vessels on the left with three-vessel runoff at the ankle.IMPRESSION:1. No significant vascular abnormality.2. COPD.Electronically signed by: Dung Saldivar (Aug 07, 2023 22:14:19)
[2023-08-08 05:00] LABS: BASOPHILS % (AUTO) 0.2 % (0.2-1.0); HEMATOCRIT 34.2 % (42.0-54.0); HEMOGLOBIN 11.7 g/dL (13.5-18.0); LYMPHOCYTES # (AUTO) 0.5 X10^3/uL (1.3-2.9); LYMPHOCYTES % (AUTO) 6.2 % (21.0-51.0); MEAN CORPUSCULAR HEMOGLOBIN 29.6 pg (27.0-34.0); MEAN CORPUSCULAR HGB CONC 34.2 g/dL (33.0-35.0); MEAN CORPUSCULAR VOLUME 86.7 fL (80.0-100.0); MEAN PLATELET VOLUME 6.6 fL (7.4-11.0); MONOCYTES # (AUTO) 0.2 x10^3/uL (0.3-0.8); MONOCYTES % (AUTO) 2.2 % (0.0-13.0); NEUTROPHILS # (AUTO) 7.5 x10^3/uL (2.2-4.8); NEUTROPHILS % (AUTO) 91.4 % (42.0-75.0); PLATELET COUNT 189 X10^3/uL (150.0-450.0); RED BLOOD COUNT 3.95 X10^6/uL (4.7-6.0); RED CELL DISTRIBUTION WIDTH 14.3 % (11.6-16.5); WHITE BLOOD COUNT 8.2 X10^3/uL (3.6-10.0)
[2023-08-08 05:03] LABS: ALANINE AMINOTRANSFERASE 20 Units/L (12-78); ALBUMIN 2.6 g/dL (3.4-5.0); ALKALINE PHOSPHATASE 109 Units/L (46-116); ASPARTATE AMINO TRANSFERASE 16 Units/L (15-37); BLOOD UREA NITROGEN 24 mg/dL (7-18); CHLORIDE 107 mmol/L (98-107); COR CA(FOR HYPOALB) 9.1 mg/dL (8.5-10.1); COR NA(FOR HYPERGLY) 142 mmol/L (136-145); CREATININE 1.42 mg/dL (0.70-1.30); GLUCOSE 197 mg/dL (65-99); POTASSIUM 4.5 mmol/L (3.5-5.1); SODIUM 140 mmol/L (136-145); TOTAL PROTEIN 5.9 g/dL (6.4-8.2); eGFR NON BLACK RACES 50 (>60)
[2023-08-08] MEDS: MESTINON 60MG TAB PO SCH (05:30)
[2023-08-08] MEDS: SOLU-Medrol 40 MG VIAL IVP SCH (05:30)
[2023-08-08 05:32] LABS: BAND NEUTROPHILS % 3 % (0-10); PLATELET MORPHOLOGY COMMENT NORMAL (NORMAL)
[2023-08-08] MEDS: MICRO K EXTEN CAP 10 MEQ PO SCH (09:44)
[2023-08-08] MEDS: TAB-A-VITE PO SCH (09:44)
[2023-08-08] MEDS: EFFEXOR XR 150 MG CAP 24-HR PO SCH (09:44)
[2023-08-08] MEDS: LASIX PO SCH (09:44)
[2023-08-08] MEDS: ACEBUTOLOL 200 MG PO SCH (09:45)
[2023-08-08] MEDS: PIRFENIDONE 801 MG PO SCH (09:46)
[2023-08-08] MEDS: ASTELIN NASAL SPRAY ENOSTRIL SCH (09:46)
[2023-08-08] MEDS: ASPIRIN EC 81 MG PO SCH (09:46)
[2023-08-08] MEDS: LOVENOX INJ 40 MG SYR SC SCH (09:47)
[2023-08-08] MEDS: ROCEPHIN VIAL 1 GRAM 1 G in NS 100 ML IV 100 ML IV SCH (09:47)
[2023-08-08] MEDS: PROTONIX INJ 40 MG VIAL IVP SCH (09:47)
--- NOTE | 2023-08-08 12:09 | W.DIS.FURT ---
Summary of Discharge Discharge Summary of Date Date of Exam: 08/08/23 Admission Date Date of Admission: 08/06/23 Admission Diagnosis Patient Problems (Updated 08/07/23 @ 08:22 by CHETAN LEAL) SOB (shortness of breath) (Acute) R06.02 Myasthenia gravis (Acute) G70.00 COPD (chronic obstructive pulmonary disease) (Acute) J44.9 Intermittent claudication (Acute) I73.9 Hypoxemia (Acute) R09.02 UTI (urinary tract infection) (Acute) N39.0 Hospital Course: Patient is a 88-year-old male that was admitted for limb cyanosis and work-up to rule out ischemic limb disease. Patient did have a CTA aorta with runoff that revealed no significant vascular abnormality. Labs: WBC 8.2, hemoglobin 11.7, platelets 189, sodium 140, potassium 4.5, creatinine 1.42, glucose 197. Patient is currently on aspirin a nd Plavix therapy. He reports improvement in his foot and on exam color appears to be improving as well. His foot is warm to touch and pulses palpated. This appears to be an ongoing issue for the past few months and will need to be followed up outpatient for further evaluation. Patient discharged in stable condition instructed to follow-up with PCP in 1 week. Vital Signs: Vital Signs (72 hours) 08/06/23 15:40 08/06/23 16:11 08/06/23 16:15 Temperature 97.9 F Pulse Rate 55 L 58 L Respiratory Rate Blood Pressure O2 Sat by Pulse Oximetry 100 100 Oxygen Delivery Method Nasal Cannula Oxygen Flow Rate 4 FIO2% 08/06/23 16:19 08/06/23 16:19 08/06/23 16:15 Temperature Pulse Rate 59 L Respiratory Rate 22 Blood Pressure 108/57 O2 Sat by Pulse Oximetry 100 Oxygen Delivery Method Nasal Cannula Oxygen Flow Rate 4 FIO2% 36 08/06/23 17:00 08/06/23 17:07 08/06/23 17:07 Temperature Pulse Rate 56 L 62 Respiratory Rate 23 43 H Blood Pressure 141/72 O2 Sat by Pulse Oximetry 100 100 Oxygen Delivery Method Oxygen Flow Rate FIO2% 08/06/23 18:02 08/06/23 18:14 08/06/23 18:00 Temperature Pulse Rate 62 65 Respiratory Rate 20 40 H Blood Pressure 141/72 O2 Sat by Pulse Oximetry 100 100 Oxygen Delivery Method Nasal Cannula Nasal Cannula Oxygen Flow Rate 3 3 FIO2% 32 08/06/23 18:00 08/06/23 20:34 08/06/23 19:00 Temperature Pulse Rate 60 Respiratory Rate 26 H 28 H Blood Pressure 143/85 165/72 O2 Sat by Pulse Oximetry 100 Oxygen Delivery Method Nasal Cannula Oxygen Flow Rate 3 FIO2% 08/06/23 20:00 08/06/23 21:00 08/06/23 21:51 Temperature 98.1 F Pulse Rate 69 69 Respiratory Rate 28 H 29 H Blood Pressure 127/60 129/57 O2 Sat by Pulse Oximetry 97 96 Oxygen Delivery Method Nasal Cannula Nasal Cannula Nasal Cannula Oxygen Flow Rate 3 3 3 FIO2% 32 08/06/23 19:00 08/06/23 22:00 08/06/23 21:34 Temperature Pulse Rate 64 Respiratory Rate 28 H 22 Blood Pressure 120/56 O2 Sat by Pulse Oximetry 96 Oxygen Delivery Method Nasal Cannula Nasal Cannula Oxygen Flow Rate 3 3 FIO2% 08/06/23 23:00 08/07/23 00:00 08/07/23 01:00 Temperature 98.5 F Pulse Rate 62 66 60 Respiratory Rate 18 16 21 Blood Pressure 111/63 114/58 121/57 O2 Sat by Pulse Oximetry 97 99 96 Oxygen Delivery Method Nasal Cannula Nasal Cannula Nasal Cannula Oxygen Flow Rate 3 3 3 FIO2% 08/07/23 02:00 08/07/23 03:00 08/07/23 04:00 Temperature 97.8 F Pulse Rate 62 61 67 Respiratory Rate 18 18 26 H Blood Pressure 124/62 125/63 127/67 O2 Sat by Pulse Oximetry 96 96 96 Oxygen Delivery Method Nasal Cannula Nasal Cannula Nasal Cannula Oxygen Flow Rate 3 3 3 FIO2% 08/07/23 05:00 08/07/23 06:00 08/07/23 07:00 Temperature Pulse Rate 63 61 Respiratory Rate 18 19 Blood Pressure 125/67 121/64 O2 Sat by Pulse Oximetry 96 94 L Oxygen Delivery Method Nasal Cannula Nasal Cannula Nasal Cannula Oxygen Flow Rate 3 3 3 FIO2% 08/07/23 10:41 08/07/23 07:00 08/07/23 08:00 Temperature 97.6 F Pulse Rate 74 60 Respiratory Rate 21 21 Blood Pressure 161/77 126/90 O2 Sat by Pulse Oximetry 95 100 Oxygen Delivery Method Nasal Cannula Nasal Cannula Nasal Cannula Oxygen Flow Rate 3 3 3 FIO2% 32 08/07/23 09:00 08/07/23 10:00 08/07/23 11:00 Temperature Pulse Rate 69 66 69 Respiratory Rate 19 24 18 Blood Pressure 157/69 124/58 152/71 O2 Sat by Pulse Oximetry 98 100 99 Oxygen Delivery Method Nasal Cannula Nasal Cannula Nasal Cannula Oxygen Flow Rate 3 3 3 FIO2% 08/07/23 12:00 08/07/23 17:23 08/07/23 17:00 Temperature 97.8 F 98.1 F Pulse Rate 80 65 Respiratory Rate 23 23 21 Blood Pressure 133/74 109/61 O2 Sat by Pulse Oximetry 98 98 Oxygen Delivery Method Nasal Cannula Nasal Cannula Oxygen Flow Rate 3 3 FIO2% 08/07/23 18:00 08/07/23 18:23 08/07/23 19:00 Temperature Pulse Rate 65 71 Respiratory Rate 24 20 23 Blood Pressure 122/60 123/58 O2 Sat by Pulse Oximetry 98 96 Oxygen Delivery Method Nasal Cannula Nasal Cannula Oxygen Flow Rate 3 3 FIO2% 08/07/23 20:00 08/07/23 20:00 08/07/23 19:00 Temperature 98.7 F Pulse Rate 71 Respiratory Rate 22 Blood Pressure 108/60 O2 Sat by Pulse Oximetry 97 Oxygen Delivery Method Nasal Cannula Nasal Cannula Nasal Cannula Oxygen Flow Rate 3 2 3 FIO2% 28 08/07/23 21:00 08/07/23 22:00 08/07/23 23:00 Temperature Pulse Rate 68 67 64 Respiratory Rate 23 22 21 Blood Pressure 117/76 120/62 121/57 O2 Sat by Pulse Oximetry 97 97 96 Oxygen Delivery Method Nasal Cannula Nasal Cannula Nasal Cannula Oxygen Flow Rate 3 3 3 FIO2% 08/08/23 00:00 08/08/23 01:00 08/08/23 02:00 Temperature 98.2 F Pulse Rate 67 76 64 Respiratory Rate 22 20 20 Blood Pressure 117/57 105/52 127/68 O2 Sat by Pulse Oximetry 97 97 97 Oxygen Delivery Method Nasal Cannula Nasal Cannula Nasal Cannula Oxygen Flow Rate 3 3 3 FIO2% 08/08/23 03:00 08/08/23 04:00 08/08/23 05:00 Temperature 97.9 F Pulse Rate 66 63 66 Respiratory Rate 20 17 20 Blood Pressure 125/60 114/54 120/60 O2 Sat by Pulse Oximetry 97 96 95 Oxygen Delivery Method Nasal Cannula Nasal Cannula Nasal Cannula Oxygen Flow Rate 3 3 3 FIO2% 08/08/23 06:00 08/08/23 07:00 Temperature Pulse Rate 57 L Respiratory Rate 25 H Blood Pressure 122/59 O2 Sat by Pulse Oximetry 96 Oxygen Delivery Method Nasal Cannula Nasal Cannula Oxygen Flow Rate 3 3 FIO2% Labs: Laboratory Last Values WBC 8.2 X10^3/uL (3.6-10.0) 08/08/23 04:23 RBC 3.95 X10^6/uL (4.7-6.0) L 08/08/23 04:23 Hgb 11.7 g/dL (13.5-18.0) L 08/08/23 04:23 Hct 34.2 % (42.0-54.0) L 08/08/23 04:23 MCV 86.7 fL (80.0-100.0) 08/08/23 04:23 MCH 29.6 pg (27.0-34.0) 08/08/23 04:23 MCHC 34.2 g/dL (33.0-35.0) 08/08/23 04: RDW 14.3 % (11.6-16.5) 08/08/23 04:23 Plt Count 189 X10^3/uL (150.0-450.0) 08/08/23 04:23 Plt Count Comment Adequate (ADEQUATE) 08/08/23 04:23 MPV 6.6 fL (7.4-11.0) L 08/08/23 04:23 Neut % (Auto) 91.4 % (42.0-75.0) H 08/08/23 04:23 Lymph % (Auto) 6.2 % (21.0-51.0) L 08/08/23 04:23 [place] % (Auto) 2.2 % (0.0-13.0) 08/08/23 04:23 Eos % (Auto) 0.0 % (0.9-2.9) L 08/08/23 04:23 Baso % (Auto) 0.2 % (0.2-1.0) 08/08/23 04:23 Neut # (Auto) 7.5 x10^3/uL (2.2-4.8) H 08/08/23 04:23 Lymph # (Auto) 0.5 X10^3/uL (1.3-2.9) L 08/08/23 04:23 [place] # (Auto) 0.2 x10^3/uL (0.3-0.8) L 08/08/23 04:23 Eos # (Auto) 0.0 x10^3/uL (0.0-0.2) 08/08/23 04:23 Baso # (Auto) 0.0 X10^3/uL (0.0-0.1) 08/08/23 04:23 Absolute Nucleated RBC 0.0 /100WBC 08/08/23 04:23 Total Counted 100 08/08/23 04:23 Neutrophils % (Manual) 86 % (39-76) H 08/08/23 04:23 Band Neutrophils % 3 % (0-10) 08/08/23 04:23 Lymphocytes % (Manual) 7 % (13-43) L 08/08/23 04:23 Monocytes % (Manual) 4 % (4-9) 08/08/23 04:23 Plt Morphology Comment Normal (NORMAL) 08/08/23 04:23 RBC Morphology Normal (NORMAL) 08/08/23 04:23 ESR 31 MM/HOUR (0-15) H 08/07/23 04:40 PT 13.5 SECONDS (11.8-14.3) 08/06/23 17:50 INR Target Range - 08/06/23 17:50 INR 1.05 (0.8-1.3) 08/06/23 17:50 APTT 27.9 SECONDS (22.9-36.5) 08/06/23 17:50 PTT Comment - 08/06/23 17:50 D-Dimer 0.61 ug/ml (0.0-0.57) H 08/06/23 17:50 Sample Site Lbra 08/06/23 17:48 ABG pH 7.420 (7.35-7.45) 08/06/23 17:48 ABG pCO2 42.0 mmHg (35.0-45.0) 08/06/23 17:48 ABG pO2 144.0 mmHg (80.0-100.0) H 08/06/23 17:48 ABG HCO3 27.2 mmol/L (22-26) H 08/06/23 17:48 ABG O2 Saturation 99.0 % (90-100) 08/06/23 17:48 ABG Base Excess 2.4 mmol/L (-2.0-2.0) H 08/06/23 17:48 Jose Test N/a 08/06/23 17:48 A-a Gradient 60.0 mmHg 08/06/23 17:48 FiO2 36.0 08/06/23 17:48 Blood Gas Comments Pt justyn well elj 08/06/23 17:48 Sodium 140 mmol/L (136-145) 08/08/23 04:23 Corrected Sodium 142 mmol/L (136-145) 08/08/23 04:23 Potassium 4.5 mmol/L (3.5-5.1) 08/08/23 04:23 Chloride 107 mmol/L (98-107) 08/08/23 04:23 Carbon Dioxide 26.0 mmol/L (21-32) 08/08/23 04:23 BUN 24 mg/dL (7-18) H 08/08/23 04:23 Creatinine 1.42 mg/dL (0.70-1.30) H 08/08/23 04:23 Est GFR (MDRD) Af Amer > 60 (>60) 08/08/23 04:23 Est GFR (MDRD) Non-Af 50 (>60) L 08/08/23 04:23 Glucose 197 mg/dL (65-99) H 08/08/23 04:23 Calcium 8.0 mg/dL (8.5-10.1) L 08/08/23 04:23 Corrected Calcium 9.1 mg/dL (8.5-10.1) 08/08/23 04:23 Iron 52 ug/dL (50-175) 08/07/23 04:40 Total Bilirubin 0.20 mg/dL (0.2-1.0) 08/08/23 04:23 AST 16 Units/L (15-37) 08/08/23 04:23 ALT 20 Units/L (12-78) 08/08/23 04:23 Alkaline Phosphatase 109 Units/L (46-116) 08/08/23 04:23 Creatine Kinase 60 Units/L (39-308) 08/06/23 17:50 Troponin I High Sens 10.9 ng/L (4.0-60.0) 08/06/23 17:50 C-Reactive Protein 4.50 mg/L (0-3.0) H 08/07/23 04:40 Total Protein 5.9 g/dL (6.4-8.2) L 08/08/23 04:23 Albumin 2.6 g/dL (3.4-5.0) L 08/08/23 04:23 Globulin 3.3 g/dL (2.5-4.5) 08/08/23 04:23 Albumin/Globulin Ratio 0.8 Ratio (1.1-2.1) L 08/08/23 04:23 Specimen Type Random urine 08/06/23 20:22 Urine Color Yellow (YELLOW) 08/06/23 20:22 Urine Appearance Clear (CLEAR) 08/06/23 20: Urine pH 5.0 (5.0 - 8.0) 08/06/23 20:22 Ur Specific [place] 1.025 (1.000-1.030) 08/06/23 20:22 Urine Protein Negative (NEGATIVE) 08/06/23 20:22 Urine Glucose (UA) Negative (NEGATIVE) 08/06/23 20:22 Urine Ketones Negative (NEGATIVE) 08/06/23 20:22 Urine Blood Negative (NEGATIVE) 08/06/23 20:22 Urine Nitrite Negative (NEGATIVE) 08/06/23 20: Urine Bilirubin Negative (NEGATIVE) 08/06/23 20:22 Urine Urobilinogen Normal (NORMAL) 08/06/23 20:22 Ur Leukocyte Esterase Negative (NEGATIVE) 08/06/23 20:22 Reason For Visit: ISCHEMIC LEFT HAND Discharge Date Discharge Date: 08/08/23 Discharge Diagnosis All Active Problems (Updated 08/07/23 @ 08:22 by CHETAN LEAL) Poison oak (Acute) Allergic dermatitis (Acute) Fall (Acute) Acute anterior epistaxis (Acute) Unsteady gait (Acute) Laceration of finger of left hand (Acute) Hypoxia (Acute) Elevated d-dimer (Acute) SOB (shortness of breath) (Acute) Weakness (Acute) Myasthenia gravis (Acute) COPD (chronic obstructive pulmonary disease) (Acute) Skin tear of left hand without complication (Acute) Contusion of hand, left (Acute) Intermittent claudication (Acute) Hypoxemia (Acute) UTI (urinary tract infection) (Acute) Plan of Treatment: Continue with present treatment and follow up plan. Pt is to keep follow up appointment as instructed and take medications as ordered. Discharge Medications Discharge Medications: codeine Allergy (Verified 08/06/23 17:48) CONTINUE taking the following medications aspirin 81 mg capsule,delayed release 81 mg PO DAILY 08/06/23 [History] furosemide 20 mg tablet 20 mg PO QDAY 08/06/23 [History] rcgrzobzgulg-oqihtryu-xzjcgk tablet (Multivitamin 50 Plus tablet) 1 tab PO DAILY 08/06/23 [History] pirfenidone 801 mg tablet 801 mg PO QID 08/06/23 [History] potassium chloride 10 mEq tablet,extended release 10 meq PO QDAY 08/06/23 [History] Discharge Disposition Discharge Disposition: Home Discharge Condition: Stable Discharge Plan Discharge Plan Hospital Course: Patient is a 88-year-old male that was admitted for limb cyanosis and work-up to rule out ischemic limb disease. Patient did have a CTA aorta with runoff that revealed no significant vascular abnormality. Labs: WBC 8.2, hemoglobin 11.7, platelets 189, sodium 140, potassium 4.5, creatinine 1.42, glucose 197. Patient is currently on aspirin and Plavix therapy. He reports improvement in his foot and on exam color appears to be improving as well. His foot is warm to touch and pulses palpated. This appears to be an ongoing issue for the past few months and will need to be followed up outpatient for further evaluation. Patient discharged in stable condition instructed to follow-up with PCP in 1 week. Patient Disposition: 01 HOME, SELF-CARE Condition: Stable Health Concerns: Post Hospitalization: new medications and changes needed to prevent readmission or further decline. Pt educated and given instructions on all concerns. Plan of Treatment: Continue with present treatment and follow up plan. Pt is to keep follow up appointment as instructed and take medications as ordered. Prescriptions: Continued atorvastatin 40 MG tablet 1 tab PO HS venlafaxine 150 MG capsule,extended release 24hr 1 cap PO DAILY omeprazole 20 MG capsule,delayed release(DR/EC) 20 mg PO BID acebutolol 200 mg capsule 200 mg PO DAILY Patient Comments: TAKE 1 CAPSULE BY MOUTH EVERY DAY pyridostigmine bromide 60 mg tablet 120 mg PO TID potassium chloride 10 mEq tablet extended release 10 meq PO QDAY aspirin 81 mg Capsule,Delayed Release(Dr/Ec) 81 mg PO DAILY furosemide 20 mg tablet 20 mg PO QDAY Multivitamin 50 Plus Tablet 1 tab PO DAILY pirfenidone 801 mg tablet 801 mg PO QID Orders to Discharge Patient Discharge Orders: Discharge (Routine); Ordered 08/08/23 Ordered By: Mauricio Gutierrez Follow ups/Referrals Follow ups/Referrals: CHETAN LEAL [Primary Care Provider] - 08/13/23 2:30 pm Instructions Instructions: Intermittent Claudication, Weakness, Earr-be-Rutg, Chronic Obstructive Pulmonary Disease, [id number], Peripheral Vascular Disease, Sovp-[id number], Myasthenia Gravis Stand Alone Forms: Post Hospital Follow Up Care
[2023-08-08 12:50] VITALS: BP 122/59; PULSE 60; RESP 19; TEMP 17.2; O2SAT 95
== END 2023-08-08 13:10 | disposition home health service (06) ==
LOC: ICU
PROVIDERS: ADMIT Internal Medicine; ATTEND Internal Medicine
DX: R70.0 Elevated erythrocyte sedimentation rate; I25.10 Atherosclerotic heart disease of native coronary artery without angina pectoris; M62.242 Nontraumatic ischemic infarction of muscle, left hand; N39.0 Urinary tract infection, site not specified; R09.02 Hypoxemia; R06.02 Shortness of breath; J44.1 Chronic obstructive pulmonary disease with (acute) exacerbation; R79.82 Elevated C-reactive protein (CRP); Z79.01 Long term (current) use of anticoagulants; R53.1 Weakness; G70.01 Myasthenia gravis with (acute) exacerbation; M54.59 Other low back pain